=== PATIENT | female | born 1970 | race Caucasian/White ===

== ENCOUNTER 2022-07-22 17:24 | Emergency (ER) | payer BC ==
[~2022-07-22] VITALS: Ht 157.5 cm; Wt 12.3 kg
[2022-07-22 17:31] VITALS: BP 178/95
[2022-07-22 17:59] LABS: CLARITY,URINE SLIGHTLY CLOUDY (Clear); COLOR,URINE YELLOW (Yellow); GLUCOSE, URINE NEGATIVE (Neg); KETONES,URINE NEGATIVE (Neg); LEUKOCYTE ESTERASE ,URINE NEGATIVE (Neg); NITRITES, URINE NEGATIVE (Neg); OCCULT BLOOD,URINE MODERATE (Neg); PH,URINE 5.5 (4.8-8.0); PROTEIN,URINE NEGATIVE (Neg); UA COLLECTION TYPE CLN CATCH MIDSTREAM; UROBILINOGEN,URINE 0.2 E.U/dL (0.2-1.0)
[2022-07-22 18:00] LABS: URINE HCG NEGATIVE (NEG)
[2022-07-22 18:02] LABS: BASOPHILS # (AUTO) 0.2 X10'3 (0-0.2); BASOPHILS % (AUTO) 1.7 % (0-1); EOSINOPHILS # (AUTO) 0.2 X10'3 (0-0.9); EOSINOPHILS % (AUTO) 1.8 % (0-6); HEMATOCRIT 48.9 % (35.0-45.0); HEMOGLOBIN 16.4 g/dl (12.0-16.0); LYMPHOCYTES % (AUTO) 22.2 % (21-51); MEAN CORPUSCULAR HEMOGLOBIN 31.4 PG (27.0-31.0); MEAN CORPUSCULAR HGB CONC 33.5 g/dL (33.0-36.5); MEAN CORPUSCULAR VOLUME 93.7 FL (78-98); MEAN PLATELET VOLUME 8.5 FL (7.4-10.4); MONOCYTES # (AUTO) 0.8 X10'3 (0-0.9); MONOCYTES % (AUTO) 8.2 % (2-12); NEUTROPHILS # (AUTO) 6.1 X10'3 (1.8-7.7); NEUTROPHILS % (AUTO) 66.1 % (42-75); PLATELET COUNT 265 X10'3 (140-440); RED BLOOD COUNT 5.22 X10'6 (4.20-5.60); RED CELL DISTRIBUTION WIDTH 13.5 % (11.5-14.5); WHITE BLOOD COUNT 9.2 X10'3 (4.5-11.0)
[2022-07-22 18:08] LABS: BACTERIA,URINE FEW /HPF (Neg); MUCUS STRANDS FEW /LPF (Neg); SQUAMOUS EPITHELIAL CELL,UR MODERATE /LPF (FEW); WBC,URINE 0-4 /HPF (0-4)
[2022-07-22 18:18] LABS: ALANINE AMINOTRANSFERASE 27 U/L (12-78); ALBUMIN 3.5 G/DL (3.4-5.0); ALBUMIN/GLOBULIN RATIO 0.9 (1.1-1.5); ALKALINE PHOSPHATASE 77 IU/L (46-116); ANION GAP 7 (8-16); ASPARTATE AMINO TRANSFERASE 15 U/L (10-37); BILIRUBIN,TOTAL 0.4 MG/DL (0.1-1.0); BLOOD UREA NITROGEN 18 MG/DL (7-18); BUN/CREATININE RATIO 20.2 (6.6-38.0); CHLORIDE 104 MMOL/L (99-107); CREATININE 0.89 MG/DL (0.40-0.90); GLUCOSE 94 MG/DL (70-104); LIPASE 69 U/L (73-393); POTASSIUM 3.5 MMOL/L (3.5-5.1); SODIUM 140 MMOL/L (135-145); TOTAL CARBON DIOXIDE 29.2 MMOL/L (24-32); TOTAL PROTEIN 7.5 G/DL (6.4-8.2); eGFR 67 ML/MIN
[2022-07-22 18:24] LABS: CALCIUM 8.8 MG/DL (8.5-10.1)
[2022-07-22] MEDS ORDERED: normal saline 1000ml 1,000 ML IV ONE (19:55)
[2022-07-22] MEDS ORDERED: ondansetron/PF 4mg/2ml inj IV ONE (20:00)
[2022-07-22] MEDS ORDERED: morphine 4 MG/ML inj SYRINge IV ONE (20:00)
--- NOTE | 2022-07-22 20:16 | NUR ---
ivp x2 given by medic
[2022-07-22] MEDS ORDERED: iohexol 300mg/ml 100ml inj. ONE (20:20)
[2022-07-22] MEDS ORDERED: ketorolac trometh. 30mg/ml inj. IV ONE (21:10)
--- NOTE | 2022-07-22 21:34 | NUR ---
iv dc'd pt being discharged. dressing applied
--- NOTE | 2022-07-22 21:34 | NUR ---
ivp given by p-medic
[2022-07-22] MEDS ORDERED: PHEN16.234 PO (23:46)
== END 2022-07-22 21:36 | disposition home or self-care (01) ==
LOC: ER 17:25
DX: R10.31 Right lower quadrant pain (principal); R11.0 Nausea; R31.9 Hematuria, unspecified; Z88.1 Allergy status to other antibiotic agents; Z79.899 Other long term (current) drug therapy
CPT/HCPCS: 36415; 74177; 80053; 81001; 81025; 83690; 85025; 96361; 96374; 96375; 99285; J1885; J2270; J2405; J3490; J7030; Q9967

== ENCOUNTER 2022-11-22 10:41 | Emergency (ER) | payer BC ==
[~2022-11-22] VITALS: Ht 157.5 cm; Wt 122.7 kg
[~2022-11-22 10:41] MED LIST: PHEN16.234 PO
[2022-11-22] MEDS ORDERED: acetaminophen 325mg tablet PO ONE (13:40)
--- NOTE | 2022-11-22 14:06 | NUR ---
vascular technologist at bedside.
[2022-11-22 15:46] VITALS: BP 127/74
== END 2022-11-22 15:23 ==
LOC: ER 10:42
DX: M25.561 Pain in right knee (principal); Z88.1 Allergy status to other antibiotic agents; Z90.710 Acquired absence of both cervix and uterus
CPT/HCPCS: 73564; 93971; 99284